=== PATIENT | female | born 1990 | race Caucasian/White ===

== ENCOUNTER → 2021-12-18 07:58 | Outpatient (CLI) | payer BC, SELFPAY ==
--- NOTE | ~2021-12-18 | US_ITS ---
EXAMINATION: US transvaginal DATE: 12/18/2021 08:37 INDICATION: Verify IUD placement TECHNIQUE: Multiple endovaginal sonographic images of the pelvis were obtained. COMPARISON: None. FINDINGS: The retroverted uterus measures 6.2 x 4.3 x 4.4 cm. The endometrial complex measures 2-3 mm in thick ness. Linear echogenic and shadowing IUD within the endometrial canal. The right ovary measures 5.6 x 4.3 x 5.1 cm. There are several anechoic cysts/follicles at the right ovary, the largest measuring 3 .0 cm in maximal diameter. The left ovary measures 4.2 x 2.3 x 2.3 and also contains a 2.8 x 1.4 x 1. 3 similar anechoic cyst/follicle. Vascular flow identified in both ovaries on color Doppler. There is no free fluid in the pelvis. IMPRESSION: 1. IUD in expected position within the endometrial canal. Reviewed, dictated and finalized at location B.
== END ==
PROVIDERS: PCP Family Medicine; Visit Provider Nurse Practitioner
DX: Z30.431 Encounter for routine checking of intrauterine contraceptive device (principal)
CPT/HCPCS: 76830

== ENCOUNTER → 2022-10-08 15:59 | Outpatient (CLI) | payer BC, SELFPAY ==
--- NOTE | ~2022-10-08 | US_ITS ---
EXAMINATION: US transvaginal DATE: 10/08/2022 16:22 INDICATION: Pelvic pain Comparison: TECHNIQUE: Multiple endovaginal sonographic images of the pelvis performed. FINDINGS: The uterus measures 7.3 x 4.7 x 4.2 cm. The endometrial complex measures 6 mm. There is an IUD present in the endometrium. The right ovary measures 3.4 x 3 x 2.2 cm and the left ovary measures 2.6 x 1.5 x 2.4 cm. There are small follicles in each ovary. Normal doppler signal in both ovaries. There is no free fluid in the pelvis. There are no abnormal masses seen on either side. IMPRESSION: 1. Unremarkable pelvic ultrasound. Reviewed, dictated and finalized at location A. [employer]
== END ==
PROVIDERS: PCP Nurse Practitioner; Visit Provider Nurse Practitioner
DX: N93.8 Other specified abnormal uterine and vaginal bleeding (principal)
CPT/HCPCS: 76830

== ENCOUNTER → 2022-12-10 07:47 | Outpatient (CLI) | payer BC, SELFPAY ==
--- NOTE | ~2022-12-10 | US_ITS ---
EXAMINATION: US breast RT limited HISTORY: Palpable lump of the lower inner quadrant of the right breast near the nipple TECHNIQUE: Limited right breast ultrasound was performed in the area of clinical interest. FINDINGS: There is a 6 mm simple cyst at the 5:00 location of the nipple corresponding to the palpabl e abnormality of concern. No suspicious cystic or solid mass is identified. IMPRESSION: Right breast cyst corresponding to the palpable abnormality of concern. BI-RADS Category 2: Benign finding(s). Reviewed, dictated and finalized at location A.
== END ==
PROVIDERS: PCP Family Medicine; Visit Provider Obstetrics & Gynecology Gynecology
DX: N60.01 Solitary cyst of right breast (principal)
CPT/HCPCS: 76642